=== PATIENT | male | born 1960 | race Caucasian/White ===

== ENCOUNTER 2018-02-28 00:18 | Emergency (ER) | payer BC ==
[~2018-02-28] VITALS: Ht 180.3 cm; Wt 90.7 kg
[~2018-02-28 00:18] MED LIST: LISINOPRIL10 MG PO; VIIBRYD40 MG PO; ZANTAC150 MG PO
[2018-02-28] MEDS ORDERED: ONDANSETRON HCL INJ 2 MG/ML VIAL IV STA (00:24)
[2018-02-28] MEDS ORDERED: KETOROLAC TROMETHAMINE 30 MG/ML VIAL IV STA (00:24)
[2018-02-28] MEDS ORDERED: KETOROLAC TROMETHAMINE 30 MG/ML VIAL ONE (00:28)
[2018-02-28 00:30] LABS: BASOPHILS # (AUTO) 0.1 (0.0-0.1); BASOPHILS % 0.7 % (0.0-1.0); EOSINOPHILS # (AUTO) 0.1 (0.0-0.4); EOSINOPHILS % 1.7 % (0.0-6.0); HEMATOCRIT 44.8 % (38.2-49.6); HEMOGLOBIN 15.6 g/dL (14.0-18.0); LYMPHOCYTES # (AUTO) 2.8 (1.0-3.2); LYMPHOCYTES % 40.7 % (18.0-39.1); MEAN CORPUSCULAR HEMOGLOBIN 29.4 pg (28-32); MEAN CORPUSCULAR HGB CONC 34.8 g/dL (31-35); MEAN CORPUSCULAR VOLUME 84.4 fL (81-99); MONOCYTES # (AUTO) 0.4 (0.2-0.8); MONOCYTES % 6.4 % (4.4-11.3); NEUTROPHILS # (AUTO) 3.4 (2.1-6.9); NEUTROPHILS % 49.9 % (38.7-80.0); PLATELET COUNT 155 x10e3/uL (140-360); RED BLOOD COUNT 5.31 x10e6/uL (4.3-5.7); RED CELL DISTRIBUTION WIDTH 14.2 % (11.7-14.4)
[2018-02-28 00:48] LABS: ALANINE AMINOTRANSFERASE 16 IU/L (0-55); ALBUMIN 3.8 g/dL (3.5-5.0); ALBUMIN/GLOBULIN RATIO 1.2 (0.8-2.0); ALKALINE PHOSPHATASE 96 IU/L (40-150); ANION GAP 12.9 mmol/L (8-16); BLOOD UREA NITROGEN 20 mg/dL (7-26); BUN/CREATININE RATIO 18 (6-25); CALCIUM 8.9 mg/dL (8.4-10.2); CARBON DIOXIDE 25 mmol/L (22-29); CHLORIDE 108 mmol/L (98-107); EST GLOMERULAR FILTRATION RATE > 60 ML/MIN (60-); GLUCOSE 102 mg/dL (74-118); POTASSIUM 3.9 mmol/L (3.5-5.1); SODIUM 142 mmol/L (136-145)
--- NOTE | 2018-02-28 01:37 | Diagnostic Imaging Report ---
EXAM: CT ABDOMEN/PELVIS WO DATE: 02/28/2018 12:24 AM INDICATION: Right flank pain COMPARISON: None TECHNIQUE: The abdomen and pelvis were scanned using a multidetector helical scanner. Coronal and sagittal reformations were obtained. Routine protocol performed. IV Contrast: 0 ml Isovue 300/370 FINDINGS: Lack of IV contrast decreases sensitivity in evaluating abdominal and pelvic organs. LOWER THORAX: No consolidations. Right middle lobe calcified granuloma. LIVER/BILIARY: Two incidental left liver cysts. No ductal dilatation. GALLBLADDER: Unremarkable SPLEEN: Unremarkable PANCREAS: Unremarkable ADRENALS: No nodules KIDNEYS: Nonobstructing 7 mm left interpolar renal calculus. No right renal calculi. No hydronephrosis GI TRACT: No wall thickening or evidence of obstruction. Diverticulosis. Normal appendix. VESSELS: Mild atherosclerotic calcifications PERITONEUM/RETROPERITONEUM: No free air or fluid LYMPH NODES: No lymphadenopathy REPRODUCTIVE ORGANS/BLADDER: Unremarkable SOFT TISSUES: No acute findings BONES: Scattered degenerative changes IMPRESSION: 1. No obstructive uropathy or other explanation for right flank pain. 2. Nonobstructing left nephrolithiasis. Signed by: Dr Arelis Campos MD on 02/28/2018 1:34 AM
== END 2018-02-28 01:57 | disposition home or self-care (01) ==
LOC: ER 00:18
DX: R10.31 Right lower quadrant pain (principal); R11.0 Nausea; M54.5 Low back pain; N20.0 Calculus of kidney; S39.012A Strain of muscle, fascia and tendon of lower back, initial encounter; F32.9 Major depressive disorder, single episode, unspecified; F17.210 Nicotine dependence, cigarettes, uncomplicated
CPT/HCPCS: 36415; 74176; 80053; 85025; 96374; 96375; 99284; J1885; J2405

== ENCOUNTER 2018-12-21 08:27 | Observation (INO) | payer BC ==
[~2018-12-21] VITALS: Ht 180.3 cm; Wt 94.8 kg
[2018-12-21] VITALS (7 sets, daily range): BP systolic 142–199; BP diastolic 73–96
--- OUTSIDE RECORDS SUMMARY | 2018-12-21 08:30 | XMS REPORT ---
Author Author [facility] Address Unknown Phone Unavailable Care Team Providers Care Burn Nurse Name Role Phone Selvin PATRICK Unavailable Unavailable Problems This patient has no known problems. Allergies, Adverse Reactions, Alerts This patient has no known allergies or adverse reactions. Medications This patient has no known medications. Results Test Description Test Time Test Comments Text Results Atomic Results Result Comments CT ABDOMEN/PELVIS WO 2018-02-28 01:30:00 [place] [address] Patient Name: TIKI GAMBINO MR #: [id number] : 1960 Age/Sex: 57/M Req #: [id number] Adm Physician: Ordered by: KASH PATRICK MD Report #: [id number] Location: ER Room/Bed: Procedure: [id number] CT/CT ABDOMEN/PELVIS WO Exam Date: 02/28/18 Exam Time: 54 REPORT STATUS: Signed EXAM: CT ABDOMEN/PELVIS WO DATE: 02/28/2018 12:24 AM INDICATION: Right flank pain COMPARISON: None TECHNIQUE: The abdomen and pelvis were scanned using a multidetector helical scanner. Coronal and sagittal reformations were obtained. Routine protocol performed. IV Contrast: 0 ml Isovue 300/370 FINDINGS: Lack of IV contrast decreases sensitivity in evaluating abdominal and pelvic organs. LOWER THORAX: No consolidations. Right middle lobe calcified granuloma. LIVER/BILIARY: Two incidental left liver cysts. No ductal dilatation. GALLBLADDER: Unremarkable SPLEEN: Unremarkable PANCREAS: Unremarkable ADRENALS: No nodules KIDNEYS: Nonobstructing 7 mm left interpolar renal calculus. No right renal calculi. No hydronephrosis GI TRACT: No wall thickening or evidence of obstruction. Diverticulosis. Normal appendix. VESSELS: Mild atherosclerotic calcifications PERITONEUM/RETROPERITONEUM: No free air or fluid LYMPH NODES: No lymphadenopathy REPRODUCTIVE ORGANS/BLADDER: Unremarkable SOFT TISSUES: No acute findings BONES: Scattered degenerative changes IMPRESSION: 1. No obstructive uropathy or other explanation for right flank pain. 2. Nonobstructing left nephrolithiasis. Signed by: Dr Claudette Campos MD on 02/28/2018 1:34 AM Dictated By: CLAUDETTE CAMPOS MD 3 Transcribed By: Merrick MONTOYA on 02/28/18133 COPY TO: KASH PATRICK MD
[2018-12-21] MEDS ORDERED: KETOROLAC TROMETHAMINE 60 MG/2 ML VIAL IM ONE (08:45)
[2018-12-21] MEDS ORDERED: SODIUM CHLORIDE 0.9% 250ML 250 ML ONE (08:46)
[2018-12-21] MEDS: MORPHINE SULFATE 1 MG/ML 30ML PCA IV PRN ×2 (09:09→19:55)
[2018-12-21] MEDS: CEFTRIAXONE SOD 1 GM/NS 50 ML 50 ML IV SCH (09:11)
[2018-12-21] MEDS: D5.45%NS/KCL 20MEQ 1,000 ML IV SCH ×2 (09:11→17:43)
[2018-12-21] MEDS ORDERED: NEXIUM40 MG PO (09:35)
--- NOTE | 2018-12-21 09:49 | NUR ---
patient received ambulatory. see admit assess. pain level 9 on arrival. after IM toradol and starting ELECTRIC MOTOR ASSEMBLER AND TESTER morphine, pain down to level 3. IV 20g started left forearm and ordered fluids infusing.
[2018-12-21 14:15] LABS: BASOPHILS % 0.5 % (0.0-1.0); EOSINOPHILS # (AUTO) 0.1 (0.0-0.4); EOSINOPHILS % 1.6 % (0.0-6.0); HEMATOCRIT 39.5 % (38.2-49.6); HEMOGLOBIN 13.8 g/dL (14.0-18.0); LYMPHOCYTES % 32.1 % (18.0-39.1); MEAN CORPUSCULAR HEMOGLOBIN 30.2 pg (28-32); MEAN CORPUSCULAR HGB CONC 34.9 g/dL (31-35); MEAN CORPUSCULAR VOLUME 86.4 fL (81-99); MONOCYTES # (AUTO) 0.4 (0.2-0.8); MONOCYTES % 6.3 % (4.4-11.3); NEUTROPHILS # (AUTO) 3.6 (2.1-6.9); NEUTROPHILS % 59.2 % (38.7-80.0); PLATELET COUNT 142 x10e3/uL (140-360); RED BLOOD COUNT 4.57 x10e6/uL (4.3-5.7)
[2018-12-21 14:28] LABS: INR 0.94; PROTHROMBIN TIME 13.1 seconds (11.9-14.5)
[2018-12-21 14:29] LABS: PARTIAL THROMBOPLASTIN TIME 29.4 seconds (23.8-35.5)
[2018-12-21 14:34] LABS: ALANINE AMINOTRANSFERASE 16 IU/L (0-55); ALBUMIN 3.2 g/dL (3.5-5.0); ALBUMIN/GLOBULIN RATIO 1.1 (0.8-2.0); ALKALINE PHOSPHATASE 84 IU/L (40-150); ANION GAP 9.6 mmol/L (8-16); BLOOD UREA NITROGEN 16 mg/dL (7-26); BUN/CREATININE RATIO 16 (6-25); CALCIUM 8.3 mg/dL (8.4-10.2); CARBON DIOXIDE 27 mmol/L (22-29); CHLORIDE 110 mmol/L (98-107); CREATININE, SERUM 0.97 mg/dL (0.72-1.25); EST GLOMERULAR FILTRATION RATE > 60 ML/MIN (60-); GLUCOSE 104 mg/dL (74-118); POTASSIUM 3.6 mmol/L (3.5-5.1); SODIUM 143 mmol/L (136-145)
--- NOTE | 2018-12-21 15:28 | NUR ---
patient transferred to med surg. report given to spencer YEAGER. vitals stable with no distress.
--- NOTE | 2018-12-21 15:30 | NUR ---
Received patient from IMCU patient A/O X3, even respirations on RA. PAINTER ROUGH pump morphine in place. Patient ambulatory. Bowel sounds active, skin intact, no edema. Call light in reach, bed low, wheels locked, side rails x2. Will continue to monitor.
--- NOTE | 2018-12-21 18:08 | Diagnostic Imaging Report ---
EXAM: ABDOMEN-1VIEW (KUB), DATE: 12/21/2018 8:51 AM INDICATION: Left flank pain. Gross hematuria. COMPARISON: None. Correlation with CT abdomen pelvis renal stone protocol dated 02/28/2018. FINDINGS: LINES/TUBES: None BOWEL PATTERN: No evidence for obstruction. SOFT TISSUES: 7.8 mm calcific density projected on the left flank at the level of L3 may represent an ureteral calculus, as there was a left renal calculus on the prior CT examination of February 2018. No mass effect. LUNG BASES: Clear. BONES: No acute findings. IMPRESSION: Findings concerning for a 7.8 mm calculus within the proximal left ureter. Consider CT abdomen renal stone protocol for further evaluation. Signed by: Dr. Vidya Cheney M.D. on 12/21/2018 6:05 PM
[2018-12-21] MEDS ORDERED: ONDANSETRON HCL INJ 2MG/ML 2ML 2 MG/ML VIAL IV PRN (18:45)
[2018-12-21] MEDS ORDERED: PROMETHAZINE 12.5MG/ NACL 0.9% 50 ML IV PRN (19:00)
[2018-12-21] MEDS ORDERED: PROMETHAZINE 12.5MG/ NACL 0.9% 12.5 MG/50 ML BAG IV PRN (19:00)
--- NOTE | 2018-12-21 19:00 | NUR ---
CHANGE OF SHIFT WALKING ROUNDS MADE, PATIENT IS NOT IN HIS ROOM OR THE RESTROOM. THE IV PUMP IS ON WITH BASAL RATE ON MORPHINE MATERIAL REQUISITIONER STILL INFUSING. THE IV PUMP IS NOW PUT ON PULSE.
--- NOTE | 2018-12-21 19:55 | NUR ---
PATIENT IS BACK IN HIS ROOM AND HE C/O SEVERE ABDOMINAL PAIN AND NAUSEA. ALL OF THE IV TUBINGS WERE CHANGED, MORPHINE KENNEL HELPER STARTED AND PHENERGAN ADMINISTERED ORDERED. THE PATIENT WAS EDUCATED THAT ONCE THE KENNEL HELPER IS INFUSING THE TREATMENT CANNOT BE INTERRUPTED FOR HIM TO GO OUTSIDE. CHARGE NURSE ALSO EDUCATED THE PATIENT ABOUT THE IMPORTANCE OF NOT INTERRUPTING THE MORPHINE KENNEL HELPER TREATMENT. BED ALARM ON, CALL LIGHT AND URINAL WITHIN EASY REACH.
--- NOTE | 2018-12-21 21:27 | NUR ---
PATIENT IS SOUNDLY ASLEEP, HE'S EASY TO AROUSE, NO RESPIRATORY DISTRESS OBSERVED. BED ALARM ON, CALL LIGHT AND URINAL WITHIN EASY REACH.
[2018-12-22 00:07] VITALS: BP 145/82
--- NOTE | 2018-12-22 01:35 | NUR ---
PATIENT IS ASLEEP, NO RESPIRATORY DISTRESS OBSERVED. BED ALARM AND URINAL WITHIN EASY REACH.
--- NOTE | 2018-12-22 01:44 | History and Physical ---
HISTORY OF PRESENT ILLNESS: The patient is a 58-year-old gentleman with history of urinary stones, was usual state of health until about the mid morning, the patient started to have abdominal pain, hematuria, did notice some hematuria in the morning, but the pain was less pronounced. The patient started with pain 10/10 in intensity and the patient is admitted to the hospital for a urethral stone. PAST MEDICAL HISTORY: History of depression, history of reflux esophagitis, and history of hyperlipidemia. MEDICATIONS: He takes at home are esomeprazole 40 mg daily and Viibryd 40 mg daily. ALLERGIES: THE PATIENT HAS NO KNOWN DRUG ALLERGIES. SOCIAL HISTORY: No EtOH. No IV drug abuse. REVIEW OF SYSTEMS: Negative for chest pain. Positive for nausea. Positive for abdominal pain. No constipation. No rectal bleeding. No hematochezia. No hematemesis. Positive for hematuria. PHYSICAL EXAMINATION: VITAL SIGNS: Temperature is 96.8, pulse is 65, blood pressure is 159/86, and pulse oximetry 97%. HEENT: Normocephalic, atraumatic. No icterus present. CVS: S1 and S2 normal. Regular rate and rhythm. ABDOMEN: Tender in the right upper quadrant and also left upper quadrant. The patient is also having tenderness in the CVA junction. EXTREMITIES: No clubbing, no cyanosis, no edema. LABORATORY VALUES: White count of 6.16, hemoglobin of 13.8, hematocrit of 39.5. Chemistry, sodium of 143, potassium 3.6, BUN and creatinine 16 and 0.97. Rest of the indices were normal. Coags were normal. IMAGING STUDIES: The patient's abdominal KUB shows a 7.8 cm calculus in the left proximal ureter. ASSESSMENT: 1. Urinary colic. 2. Ureteral stone. PLAN: Dr. Ramirez to do a left ureteral stent and extracorporeal shock wave lithotripsy. Continue to monitor the patient. IV fluids on hand. The patient is on a CLIENT ADMINISTRATOR pump. Phenergan and Zofran will be given for nausea control. Restart home medications. Further recommendation per clinical course. MD VALENCIA Guerrero/KRISTIL /[id number]
[2018-12-22 04:00] VITALS: BP 145/69
[2018-12-22] MEDS: D5.45%NS/KCL 20MEQ 1,000 ML IV SCH ×2 (04:15→09:35)
--- NOTE | 2018-12-22 04:28 | NUR ---
PATIENT RESTING IN BED, HE DENIES PAIN AT THIS TIME. MORPHINE LOSS PREVENTION RESEARCH ENGINEER INFUSING ORDERED, CALL LIGHT WITHIN EASY REACH. HE'S EDUCATED THAT BY 0600 HE WILL NEED TO TAKE A HIBICLENS BATH IN PREPARATION FOR HIS SURGICAL PROCEDURE THIS MORNING.
--- NOTE | 2018-12-22 05:15 | Consultation ---
DATE OF CONSULTATION: 12/21/2018 Urology Consultation REASON FOR CONSULTATION: Renal colic. HISTORY OF PRESENT ILLNESS: Alex Benoit is a 58-year-old man with a history of recurrent urolithiasis. The patient has previously passed kidney stones with significant amount of renal colic. The patient has had severe left-sided flank pain since the manager pediatric hours of today. He also noted gross hematuria. The patient denies urinary tract infections. Denies any urinary incontinence. He denies any urinary tract obstructive symptoms. Denies any urinary tract irritative symptoms. He also denies any dysuria. PAST MEDICAL AND SURGICAL HISTORY: 1. Recurrent kidney stones. 2. Depression. FAMILY HISTORY: Noncontributory to the active urological problems. SOCIAL HISTORY: The patient has a longstanding smoking history. denies ethanol and drug abuse. 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 ALLERGIES: NONE KNOWN. CURRENT MEDICATIONS: Please refer to the MAR. REVIEW OF SYSTEMS: Consistent with above history of present illness and past medical history, otherwise negative for all systems. PHYSICAL EXAMINATION: GENERAL: A healthy-appearing 58-year-old man, in no apparent distress, but obvious significant discomfort. VITAL SIGNS: He is afebrile. stable. ABDOMEN: Soft, nondistended. It is tender in the left flank with left costovertebral angle tenderness. Kidneys not palpable without hepatosplenomegaly. IMAGING AND LABORATORY STUDIES: CT scanning in the emergency room in February of 2018 revealed a 7 mm left interpolar stone without any hydronephrosis. KUB performed today revealed a 7.8 mm calcification near the left L3 consistent with the previously documented kidney stone. The patient's white blood cell count is 6160, hemoglobin is 13.8, and platelets are normal at 142,000. The patient's creatinine is normal at 0.97. His calcium is low at 8.3. PT and PTT are normal. ASSESSMENT: 1. Left renal colic. 2. Gross hematuria. 3. Left ureterolithiasis. 4. Anemia. 5. Hypocalcemia. 6. Presumed left hydronephrosis. 7. Smoking history. PLAN: 1. I posted the patient for left ESWL with cystoscopy and stent placement. Unfortunately, the patient was not n.p.o. and we could not perform the procedure today. 2. Ongoing urological followup is a must including metabolic stone workup in hopes of preventing additional recurrent stones. 3. One the above procedures have been performed, the patient will most likely be able to be discharged with plans for followup outpatient ureteroscopy and stent removal. Thank you very much for involving us in the care of your patient. We will be happy to follow him along with you as well as an outpatient. Vikram MD James [place]/MODL /[id number] cc: Demarco Jain MD
--- NOTE | 2018-12-22 06:48 | NUR ---
PATIENT IS OFF THE UNIT PER STRETCHER TO SURGERY, HE LEFT THE UNIT IN STABLE CONDITION WITHOUT PAIN OR RESPIRATORY DISTRESS.
[2018-12-22] MEDS ORDERED: SCOPOLAMINE 1.5 MG PATCH ONE (06:51)
[2018-12-22] MEDS ORDERED: FAMOTIDINE 20 MG/2 ML VIAL IV ONE (06:51)
[2018-12-22] MEDS ORDERED: IOPAMIDOL 200 MG/ML 20 ML VIAL IT ONE (06:53)
[2018-12-22] MEDS ORDERED: BELLADONNA/OPIUM 60 MG SUPP PR ONE (06:54)
--- NOTE | 2018-12-22 07:21 | NUR ---
RECEIVED REPORT FROM NIGHT NURSE IN SHIFT CHANGE. PATIENT IN OR FOR SURGERY AT THIS TIME.
[2018-12-22] MEDS ORDERED: ACETAMINOPHEN/CODEINE 300MG - 30MG TAB PO PRN (08:15)
[2018-12-22] MEDS ORDERED: TAMSULOSIN HCL 0.4 MG CAP PO SCH (08:15)
--- NOTE | 2018-12-22 08:17 | Progress Note ---
DATE: SUBJECTIVE: The patient has been admitted for renal colic, currently still in pain. No chest pains. No shortness of breath. Positive for some nausea. No vomiting. No diarrhea. No constipation. No rectal bleeding. MEDICATIONS: He is on IV fluids, morphine sulfate as needed, Rocephin 1 g q.12 hours, and also on Zofran as needed. OBJECTIVE: VITAL SIGNS: Temperature 97.7, pulse of 67, respirations of 20, blood pressure is 145/69. HEENT: Normocephalic and atraumatic. No icterus present. CVS: S1 and S2 normal. Regular rate and rhythm. ABDOMEN: Tender in the left CVA, otherwise with no suprapubic tenderness. EXTREMITIES: No clubbing, no cyanosis, no edema. LABORATORY VALUES: None done today. ASSESSMENT: Renal colic/renal stone. PLAN: Plan is to do a retrograde stent and lithotripsy. Continue current management. Further recommendation on clinical course and also on Dr. Ramirez. MD VALENCIA Guerrero/MODL /[id number]
--- NOTE | 2018-12-22 08:40 | NUR ---
PATIENT BACK FROM SURGERY AT THIS TIME. NO SIGNS OF DISTRESS. VITALS STABLE. WILL CONTINUE TO MONITOR PATIENT.
[2018-12-22 08:58] VITALS: BP 164/83
[2018-12-22] MEDS ORDERED: OXYBUTYNIN CHLORIDE 5 MG TAB PO SCH (09:00)
[2018-12-22] MEDS ORDERED: PHENAZOPYRIDINE HCL 100 MG TAB PO SCH (09:00)
[2018-12-22] MEDS: CEFTRIAXONE SOD 1 GM/NS 50 ML 50 ML IV SCH (09:35)
[2018-12-22 09:56] VITALS: BP 164/83
[2018-12-22] MEDS ORDERED: TYLENOL WITH C1 EACH PO (10:34)
[2018-12-22] MEDS ORDERED: FLOMAX0.4 MG PO (10:34)
[2018-12-22] MEDS ORDERED: DITROPAN XL5 MG PO (10:34)
[2018-12-22 11:43] VITALS: BP 156/85
--- NOTE | 2018-12-22 12:30 | NUR ---
REMOVED PATIENTS IV. CATHETER TIP INTACT AND PRESSURE DRESSING APPLIED.
--- NOTE | 2018-12-22 12:43 | NUR ---
PATIENT DISCHARGED FROM FACILITY. PATIENT GATHERED ALL PERSONAL BELONGINGS, DISCHARGE INSTRUCTIONS, PRESCRIPTIONS, AND FOLLOW UP INFORMATION. NO SIGNS OF DISTRESS LEAVING FACILITY.
--- NOTE | 2018-12-22 14:54 | Operative Report ---
DATE OF PROCEDURE: 12/22/2018 SURGEON: Vikram Ramirez MD PREOPERATIVE DIAGNOSES: 1. Left ureterolithiasis. 2. Left hydronephrosis due to stone. 3. Gross hematuria. POSTOPERATIVE DIAGNOSES: 1. Left ureterolithiasis. 2. Left hydronephrosis due to stone. 3. Gross hematuria. OPERATION PERFORMED: 1. Left-sided extracorporeal shock wave lithotripsy (separate staged procedures as part of a multi-stage and multi-step process in managing the patient's left urolithiasis). 2. Cystourethroscopy with bilateral ureteral catheterization and retrograde ureteropyelography (separate procedure performed for the hematuria). 3. Interpretation of retrograde ureteropyelography. 4. Supervision of fluoroscopy, no radiologist present. 5. Cystourethroscopy with insertion of left indwelling ureteral stent (separate procedure performed to relieve the hydronephrosis). ANESTHESIA: General. COMPLICATIONS: None. CLINICAL SUMMARY: Please refer to consultation dictation from the prior date. OPERATIVE PROCEDURE IN DETAIL: Informed consent was verified. Alex Benoit was properly identified, placed in a lithotripsy table in supine position. Anesthesia was uneventfully begun. The patient's left ureterolithiasis was localized with biplanar fluoroscopy. A total of 3000 shocks were delivered with some degree of fragmentation noted. The patient was then carefully gently repositioned in dorsal lithotomy position with all pressure points well padded and his genitalia were prepared and draped in usual sterile fashion. A 21-Guatemalan cystourethroscope sheath with the visual obturator in place was atraumatically inserted and the patient's urethra was guided down the relatively unremarkable urethra through the normal sphincteric region through the prostate bed, which was significant for trilobar prostatic hypertrophy with an intravesical median lobe. We entered the patient's bladder and drained it. Panendoscopy of the bladder revealed some fine sand and also revealed mild trabeculations. Normally positioned configured ureteral orifices were identified. No bladder tumors and no suspicious lesions were identified. A 5-Guatemalan open-ended ureteral catheter was used to cannulate the left ureter and retrograde ureteropyelography was performed. We then negotiated guidewire past the region of the stone and into the patient's hydronephrotic kidney and obtained a brisk hydronephrotic drip, which was slightly pink, it was sent for culture and sensitivity. Guidewire was replaced and with cystoscopic and fluoroscopic guidance, the left-sided indwelling ureteral stent was then placed, it was coiled in the patient's upper pole calyx as well as in the patient's bladder and the retaining suture was cut short. A 5-Guatemalan open-ended catheter was used to cannulate the right ureter and retrograde ureteropyelography was performed. Interpretation of retrograde ureteropyelography: Contrast was instilled in a retrograde fashion bilaterally. The right side exhibited no hydronephrosis. 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 Calices were sharp and delicate. There were no filling defects and no suspicious lesions. The ureter was unremarkable. Unobstructed drainage was observed fluoroscopically. The left side exhibited normal distal ureter. At the junction between the proximal and mid third of the left ureter, there were multiple filling defects corresponding to the stone with fairly significant hydroureteronephrosis proximal to that with pyelosinus backflow and calyceal blunting consistent with relatively acute and relatively high-grade obstruction. The stent was in good position, coiled in the patient's upper pole calyx as well as in the patient's bladder at the end of the case. The patient's bladder was drained. The cystoscope was withdrawn. Belladonna and opium suppository was placed revealing a 30 g prostate, smooth and non-fluctuant without any nodules. The patient was uneventfully reversed from anesthesia and taken to recovery room in stable condition. There were no complications to the procedure. He tolerated the procedure well. Explicit postop instructions were given listed on the chart. PLAN: 1. I have prescribed the patient Tylenol No. 3, Ditropan, and Flomax. 2. The patient needs to filter and strain the urine for the next couple of weeks and save all sand. 3. In several weeks, we will need to return the patient to the operating room to remove his stent, perform ureteroscopy with holmium laser standby and hopefully render him stent-free and stone-free at that time. 4. The patient needs ongoing urological followup as well as metabolic stone workup in hopes of decreasing his rate of stone recurrence. 5. We will follow the patient up on long-term basis for his BPH. Vikram Ramirez MD [place]/MODL /[id number] cc: Demarco Jain MD
[2018-12-22] MEDS ORDERED: PROPOFOL IV EMULSION 10 MG/ML 20 ML VIAL ONE (18:07)
[2018-12-22] MEDS ORDERED: SEVOFLURANE INHAL SOLN 250 ML PEN BTL ONE (18:07)
[2018-12-22] MEDS ORDERED: LIDOCAINE HCL 2% LOCAL INJ 5 ML SDV VIAL INJ ONE (18:07)
[2018-12-22] MEDS ORDERED: ONDANSETRON HCL INJ 2MG/ML 2ML 2 MG/ML VIAL ONE (18:07)
[2018-12-22] MEDS ORDERED: DEXAMETHASONE SOD PHOS INJ 4 MG/ML VIAL ONE (18:07)
[2018-12-22] MEDS ORDERED: FENTANYL CITRATE/PF 100MCG/2 ML INJ ONE (18:28)
[2018-12-22] MEDS ORDERED: MIDAZOLAM HCL 2 MG/2 ML VIAL ONE (18:28)
== END 2018-12-22 12:43 | disposition home or self-care (01) ==
LOC: UNDOADMOB 08:27 → PACU V 08:27 → IMCU 08:29 → MED/SURG 15:27
PROVIDERS: ADMIT Family Medicine; ATTEND Family Medicine
DX: N13.2 Hydronephrosis with renal and ureteral calculous obstruction (principal); N23 Unspecified renal colic; K21.9 Gastro-esophageal reflux disease without esophagitis; D64.9 Anemia, unspecified; F17.210 Nicotine dependence, cigarettes, uncomplicated; I10 Essential (primary) hypertension; E83.51 Hypocalcemia
CPT/HCPCS: 36415; 50590; 52332; 74018; 80053; 85025; 85610; 85730; 87086; 96365; 96367; C2617; G0378 ×2; J0696 ×2; J1100; J1885; J2001; J2250; J2270; J2405; J2550; J2704; J7050; Q9967

== ENCOUNTER → 2019-01-05 | Outpatient (CLI) | payer BC ==
[~2019-01-05] MED LIST changes: +DITROPAN XL5 MG PO; +FLOMAX0.4 MG PO; +NEXIUM40 MG PO; +TYLENOL WITH C1 EACH PO
--- NOTE | 2019-01-05 13:10 | Diagnostic Imaging Report ---
Abdomen, 1 view. History: Renal calculus. Comparison: 12/19/2018. Findings: A new left internal ureteral stent is present extending from the left kidney to the bladder. 8 mm stone is again seen in the proximal left ureter, at the level of L3. Air is scattered throughout nondilated small and large bowel. There are no masses. The osseous structures are intact. IMPRESSION: Status post left internal ureteral stent placement. Signed by: Rod Quintero on 01/05/2019 1:06 PM
== END ==
LOC: RAD 10:54
PROVIDERS: ATTEND Urology
DX: N20.1 Calculus of ureter (principal)
CPT/HCPCS: 74018

== ENCOUNTER → 2019-01-11 | Day surgery (SDC) | payer BC ==
[~2019-01-11] MED LIST changes: +ACETAMINOPHEN 1000 MG/100 ML IV ONE; +B&O 60MG R/S 60 MG SUPP PR ONE; +DEXAMETHASONE SOD PHOS INJ 4 MG/ML VIAL ONE; +FENTANYL CITRATE/PF 100MCG/2 ML INJ ONE; +GENTAMICIN 80MG/NS 100 ML 200 ML IV ONE; +IOPAMIDOL 610MG/1ML 300 MG/ML VIAL IV ONE; +KETOROLAC TROMETHAMINE 30 MG/ML VIAL ONE; +LIDOCAINE HCL 2% LOCAL INJ 5 ML SDV VIAL INJ ONE; +ONDANSETRON HCL INJ 2MG/ML 2ML 2 MG/ML VIAL ONE; +PIPER-TAZ 3.375 GM 50 ML ONE; +PROPOFOL IV EMULSION 10 MG/ML 20 ML VIAL ONE; +SEVOFLURANE INHAL SOLN 250 ML PEN BTL ONE
[2019-01-11 10:34] VITALS: BP 166/99
--- NOTE | 2019-02-22 05:30 | Operative Report ---
DATE OF PROCEDURE: 01/11/2019 SURGEON: Vikram Ramirez MD PREOPERATIVE DIAGNOSES: 1. Left ureterolithiasis. 2. Left nephrolithiasis. 3. Left indwelling ureteral stent. POSTOPERATIVE DIAGNOSES: 1. Left ureterolithiasis. 2. Left nephrolithiasis. 3. Left indwelling ureteral stent. OPERATIONS PERFORMED: Note: These were all staged procedures as part of a multi-stage and multi-step process in managing the patient's urolithiasis. 1. Cystourethroscopy with complicated removal of left indwelling ureteral stent (separate procedure performed for the diagnosis of stent under separate scope). 2. Left semi-rigid ureteroscopy with stone manipulation of ureteral stones (separate procedure performed for further diagnosis of ureteral stones). 3. Repeated and extensive left flexible ureteropyeloscopy with stone manipulation and extraction (several procedures performed to remove multiple stones from the patient's left kidney done with the flexible ureteroscope). 4. Radiological services for supervision and interpretation of ureteroscopy. 5. Interpretation of retrograde ureteropyelography. 6. Supervision of fluoroscopy, no radiologist is present. ANESTHESIA: General. COMPLICATIONS: None. CLINICAL SUMMARY: Alex Benoit is a 58-year-old man, who has recurrent stone disease. The patient had an 8 mm stone that was lodged and obstructing at the level of the mid ureter. He underwent emergent ESWL and stent placement. He is brought to the operating room for management of his residual stones in the hopes of rendering him stent free and stone free. He is aware of the risks of bleeding, infection, injury to adjacent structures, need for additional procedures and elected to proceed. OPERATIVE PROCEDURE IN DETAIL: Informed consent was verified. Alex Benoit was properly identified, taken to the operating room, placed on the cystoscopy table in supine position. Anesthesia was uneventfully begun. The patient was then carefully and gently repositioned in the dorsal lithotomy position with all pressure points well padded. His genitalia were prepared and draped in usual sterile fashion. The cystoscope sheath with the visual obturator in place was atraumatically inserted into the patient's urethra. It was guided down unremarkably urethra through the prostate bed, which was significant for trilobar prostatic hypertrophy with visually obstructing BPH. A significant median lobe and kissing lateral lobes. Panendoscopy of the urinary bladder revealed trabeculations and stent emerging from the left ureteral orifice. A guidewire was then placed alongside the stent and guided to the level of the patient's kidney. The stent was then grasped completely removed and discarded. Semi-rigid ureteroscopy was then performed. The ureteroscope was brought up alongside the guidewire and atraumatically inserted into the patient's left ureter. We identified some sand material and some small stones. These stones were irrigated to dislodge them from the mucosa. They were too small to grasp. Secondary guidewire was left in place. The flexible ureteroscope was then brought up over the guidewire and guided to the level of the patient's kidney. Numerous stones were identified. These stones were small enough to be extracted atraumatically. Each stone was grasped with a Nitinol tipless basket. The ureteroscope was then completely removed with the stone. We then reintroduced the ureteroscope, brought it back up over secondary guidewire grasping the stone and pulled that out. This procedure was performed numerous times until all significantly sized stones were removed from the patient's kidney, only verifying sand remained that was too small to grasp with the basket. Irrigation within the intrarenal collecting system was performed in order to dislodge all the sand and allow it to pass. We carefully examined the ureter as we exited and exhibited no stones, no debris. The previous sand that we noted within the ureter, we were able to flush out. Interpretation of retrograde ureteropyelography: Contrast was instilled in a retrograde fashion via the ureteroscope. There was fullness of the left-sided collecting system. There was no extravasation of contrast. Unobstructed drainage was observed fluoroscopically at the end of the case. The patient's bladder was drained and cystoscope was withdrawn. Belladonna and opium suppository were placed revealing a 35 g prostate that is smooth, nonfluctuant without any nodules. The patient was then uneventfully reversed from anesthesia and taken to recovery room in stable condition. There were no complications at the end of the procedure. He tolerated procedure well. Explicit postoperative instructions were given. We will follow the patient up in the office. At which point in time, uroflowmetry and bladder ultrasonography will be performed. Vikram Ramirez MD [place]/MODL /[id number] cc: Demarco Jain MD
== END | disposition home or self-care (01) ==
LOC: OR 06:16
PROVIDERS: ATTEND Urology
DX: N20.0 Calculus of kidney (principal); N40.1 Benign prostatic hyperplasia with lower urinary tract symptoms; Z46.6 Encounter for fitting and adjustment of urinary device; N13.8 Other obstructive and reflux uropathy; N32.89 Other specified disorders of bladder; K21.9 Gastro-esophageal reflux disease without esophagitis; F32.9 Major depressive disorder, single episode, unspecified; F17.210 Nicotine dependence, cigarettes, uncomplicated
CPT/HCPCS: 36415; 52352; 74420; 84550; 88300; 93005; J0131; J1100; J1580; J1885; J2001; J2405; J2543; J2704; Q9967; J3010

== ENCOUNTER 2019-01-12 02:52 | Observation (INO) | payer BC ==
[~2019-01-12] VITALS: Ht 180.3 cm; Wt 91.6 kg
[2019-01-12] VITALS (7 sets, daily range): BP systolic 127–150; BP diastolic 69–92
[~2019-01-12 02:52] MED LIST changes: -ACETAMINOPHEN 1000 MG/100 ML IV ONE; -B&O 60MG R/S 60 MG SUPP PR ONE; -DEXAMETHASONE SOD PHOS INJ 4 MG/ML VIAL ONE; -GENTAMICIN 80MG/NS 100 ML 200 ML IV ONE; -IOPAMIDOL 610MG/1ML 300 MG/ML VIAL IV ONE; -KETOROLAC TROMETHAMINE 30 MG/ML VIAL ONE; -LIDOCAINE HCL 2% LOCAL INJ 5 ML SDV VIAL INJ ONE; +MIDAZOLAM HCL 2 MG/2 ML VIAL ONE; -ONDANSETRON HCL INJ 2MG/ML 2ML 2 MG/ML VIAL ONE; -PIPER-TAZ 3.375 GM 50 ML ONE; -PROPOFOL IV EMULSION 10 MG/ML 20 ML VIAL ONE; -SEVOFLURANE INHAL SOLN 250 ML PEN BTL ONE
[2019-01-12] MEDS ORDERED: HYDROMORPHONE 1MG/1ML INJ IV STA (03:02)
[2019-01-12] MEDS ORDERED: ONDANSETRON HCL INJ 2MG/ML 2ML 2 MG/ML VIAL IV STA (03:02)
[2019-01-12] MEDS ORDERED: SODIUM CHLORIDE 0.9% 1000ML 1,000 ML IV STA (03:02)
[2019-01-12] MEDS ORDERED: ONDANSETRON HCL INJ 2MG/ML 2ML 2 MG/ML VIAL ONE (03:11)
[2019-01-12] MEDS ORDERED: LIDOCAINE JELLY 2% 10ML URO-JET ONE (03:12)
[2019-01-12] MEDS ORDERED: SODIUM CHLORIDE 0.9% 1000ML 1,000 ML ONE (03:12)
[2019-01-12] MEDS ORDERED: LIDOCAINE JELLY 2% 10ML URO-JET TOP ONE (03:15)
[2019-01-12] MEDS ORDERED: HYDROMORPHONE 2MG/ML 2 MG/ML ML ONE (03:20)
[2019-01-12 03:28] LABS: BASOPHILS % 0.1 % (0.0-1.0); EOSINOPHILS % 0.1 % (0.0-6.0); HEMOGLOBIN 14.7 g/dL (14.0-18.0); LYMPHOCYTES # (AUTO) 2.3 (1.0-3.2); LYMPHOCYTES % 12.2 % (18.0-39.1); MEAN CORPUSCULAR HEMOGLOBIN 29.4 pg (28-32); MONOCYTES # (AUTO) 1.1 (0.2-0.8); MONOCYTES % 5.7 % (4.4-11.3); NEUTROPHILS # (AUTO) 15.2 (2.1-6.9); NEUTROPHILS % 81.4 % (38.7-80.0); PLATELET COUNT 199 x10e3/uL (140-360); RED CELL DISTRIBUTION WIDTH 13.8 % (11.7-14.4)
[2019-01-12 03:37] LABS: INR 0.88; PROTHROMBIN TIME 12.4 seconds (11.9-14.5)
[2019-01-12 03:38] LABS: PARTIAL THROMBOPLASTIN TIME 26.4 seconds (23.8-35.5)
[2019-01-12 03:42] LABS: ANION GAP 17.9 mmol/L (8-16); CREATININE, SERUM 1.54 mg/dL (0.72-1.25); POTASSIUM 3.9 mmol/L (3.5-5.1)
[2019-01-12 04:03] LABS: CALCIUM 9.9 mg/dL (8.4-10.2)
[2019-01-12] MEDS ORDERED: ONDANSETRON HCL INJ 2MG/ML 2ML 2 MG/ML VIAL IV PRN (04:45)
[2019-01-12] MEDS ORDERED: HYDROMORPHONE 1MG/1ML INJ IV PRN (04:45)
--- NOTE | 2019-01-12 05:10 | NUR ---
Patient arrived to the unit alert and oriented x3. Has Cudae catheter draining bloody urine. Per report received from ER nurse, Dr. Ramirez has been notified of consult. Patient also said he works with Dr. Ramirez and has sent a text message. Dr. Ramirez replies will see pt today. IVF (NS at 125ml/hr) infusing. Call hinojosa within reach.
[2019-01-12 05:56] LABS: BILIRUBIN,URINE NEGATIVE (NEGATIVE); CLARITY,URINE CLEAR (CLEAR); COLOR,URINE RED (YELLOW); KETONES,URINE NEGATIVE (NEGATIVE); LEUKOCYTE ESTERASE ,URINE SMALL (NEGATIVE); NITRITE,URINE POSITIVE (NEGATIVE); URINE UROBILINOGEN 1 mg/dL (0.2 - 1)
[2019-01-12] MEDS: CEFTRIAXONE SOD 1 GM/NS 50 ML 50 ML IV SCH (06:00)
[2019-01-12] MEDS: SODIUM CHLORIDE 0.9% 1000ML 1,000 ML IV SCH ×2 (06:00→17:15)
[2019-01-12 06:09] LABS: PROTEIN,URINE DIPSTICK 3+ (NEGATIVE)
[2019-01-12 06:12] LABS: BACTERIA,URINE FEW /HPF; EPITHELIAL CELLS,URINE RARE /LPF; RBC,URINE >50 /HPF (0-5); TRANSITIONAL EPI CELLS,URINE RARE; WBC,URINE (MAN) 0-5 /HPF (0-5)
--- NOTE | 2019-01-12 07:38 | History and Physical ---
REASON FOR ADMISSION: The patient is a 58-year-old gentleman with a history of recurrent urinary stones, comes in with urinary retention and hematuria. HISTORY OF PRESENTING ILLNESS: Mr. Benoit, who had a long-standing history of kidney stones, came in with problems with urinating. The patient had removed his stent yesterday. The patient started to have hematuria, urgency, and discomfort. The patient could not urinate for a long period of time, tried to sit on the commode and the patient did notice multiple amount of clots being passed. The patient's pain was increasing and the patient came to the emergency room, was found to have obstructive uropathy, also with hematuria, and elevated pain and hematuria. PAST MEDICAL HISTORY: History of kidney stone and history of depression. MEDICATIONS: The patient takes antidepressant Viibryd 40 mg daily. ALLERGIES: NO DRUG ALLERGIES. MEDICATIONS: Besides that none. The patient also takes Nexium and esomeprazole for reflux esophagitis. SOCIAL HISTORY: No EtOH. No IV drug abuse. REVIEW OF SYSTEMS: Negative for chest pain. Positive for some shortness of breath. Positive for chills. Positive for fever. No nausea, vomiting, or diarrhea. No constipation. No rectal bleeding. Positive for hematuria. Positive for dysuria and anuria. PHYSICAL EXAMINATION: VITAL SIGNS: Temperature is 97.5, pulse of 85, respirations of 19, blood pressure is 139/73, and pulse oximetry 95%. HEENT: Normocephalic, atraumatic. Pupils are reactive to light and accommodation. CVS: S1, S2 normal. Regular rate and rhythm. ABDOMEN: Distended, tender. No CVA tenderness present. EXTREMITIES: No clubbing, no cyanosis, no edema. LABORATORY DATA: The patient's white count is ,000, hemoglobin of 14.7, hematocrit 42.7, and left shift was present. Chemistry shows sodium 134, potassium 3.9, BUN was 20, creatinine of 1.54 with a glucose of 128. Coags were normal. IMAGING STUDIES: None done. ASSESSMENT: 1. Obstructive uropathy. 2. Acute renal failure. 3. Gross hematuria. 4. Urinary retention. 5. History of depression. 6. History of reflux esophagitis. PLAN: To continue with manual irrigation. The patient has been irrigated. Nathan is inserted. A 750 mL of urine has been drained and was with thick curt blood. Continue to monitor the patient. Check a CBC and the CMP tomorrow. Monitor for his uropathy and renal failure. The patient is also on Rocephin. Microbiology, urine cultures are pending. We will also do urine culture, blood culture in view of his feeling chills and fevers. Further recommendation per clinical course. We will continue to monitor the patient. MD VALENCIA Guerrero/CHRISTAL /[id number]
--- NOTE | 2019-01-12 08:10 | NUR ---
Notified patient of 's orders for simple irrigation. Patient states " I have been doing it myself. I want to do it myself since I know how to do it.The last time I did it was at 0730." Offered help patient refused at this time. Instructed patient to call for help when needed. Voiced understanding.
[2019-01-12] MEDS ORDERED: ACETAMINOPHEN/CODEINE 300MG - 30MG TAB PO PRN (08:15)
[2019-01-12] MEDS ORDERED: OXYBUTYNIN CHLORIDE XL 5 MG TAB PO PRN (08:15)
[2019-01-12] MEDS: TAMSULOSIN HCL 0.4 MG CAP PO SCH (08:54)
[2019-01-12] MEDS: PANTOPRAZOLE SOD 40 MG TABEC PO SCH (08:54)
--- NOTE | 2019-01-12 11:30 | NUR ---
Simple irrigation done by patient. Moderate amount of blood clots noted.
--- NOTE | 2019-01-12 13:20 | NUR ---
Simple irrigation done by patient.
--- NOTE | 2019-01-12 16:30 | NUR ---
Simple irrigation done by patient. Moderate amount of blood clots noted.
--- NOTE | 2019-01-12 18:31 | NUR ---
Resting in bed, call light within reach. No s/s of acute distress noted. Report to be given to oncoming nurse.
--- NOTE | 2019-01-12 19:15 | NUR ---
Patient visited in room during nursing rounds. Patient alert and oriented x3. No distress noted. Pt states having some slight off-on discomfort on his bladder area especially when expelling or sucking out blood clots from coude catheter. Urine notably bloody to dark red in color. Call hinojosa within reach. Will monitor closely.
[2019-01-12] MEDS: HYDROMORPHONE 2MG/ML 2 MG/ML ML IV PRN (19:34)
--- NOTE | 2019-01-12 22:00 | NUR ---
Patient assisted on aspirating blood clots from coude catheter. Large amounts of blood clots pulled out fo catheter. Pt stated he felt immediate relief.
[2019-01-13 00:18] VITALS: BP 144/67
[2019-01-13] MEDS: SODIUM CHLORIDE 0.9% 1000ML 1,000 ML IV SCH ×2 (03:04→09:07)
[2019-01-13 04:00] VITALS: BP 162/83
--- NOTE | 2019-01-13 04:00 | NUR ---
Patient stated he has pulled out blood clots from coude catheter. Urine dark red in color.
[2019-01-13 05:27] LABS: BASOPHILS % 0.5 % (0.0-1.0); EOSINOPHILS # (AUTO) 0.2 (0.0-0.4); EOSINOPHILS % 2.3 % (0.0-6.0); HEMATOCRIT 37.8 % (38.2-49.6); HEMOGLOBIN 12.4 g/dL (14.0-18.0); LYMPHOCYTES # (AUTO) 2.6 (1.0-3.2); LYMPHOCYTES % 34.2 % (18.0-39.1); MEAN CORPUSCULAR HEMOGLOBIN 29.2 pg (28-32); MEAN CORPUSCULAR HGB CONC 32.8 g/dL (31-35); MONOCYTES # (AUTO) 0.6 (0.2-0.8); MONOCYTES % 7.4 % (4.4-11.3); NEUTROPHILS # (AUTO) 4.2 (2.1-6.9); NEUTROPHILS % 54.9 % (38.7-80.0); PLATELET COUNT 149 x10e3/uL (140-360); RED BLOOD COUNT 4.24 x10e6/uL (4.3-5.7); RED CELL DISTRIBUTION WIDTH 14.4 % (11.7-14.4)
[2019-01-13 05:28] LABS: MEAN CORPUSCULAR VOLUME 89.2 fL (81-99)
[2019-01-13 05:55] LABS: BLOOD UREA NITROGEN 16 mg/dL (7-26); BUN/CREATININE RATIO 18 (6-25); CALCIUM 8.4 mg/dL (8.4-10.2); CARBON DIOXIDE 24 mmol/L (22-29); CHLORIDE 106 mmol/L (98-107); CREATININE, SERUM 0.87 mg/dL (0.72-1.25); EST GLOMERULAR FILTRATION RATE > 60 ML/MIN (60-); GLUCOSE 93 mg/dL (74-118); SODIUM 137 mmol/L (136-145)
[2019-01-13] MEDS: CEFTRIAXONE SOD 1 GM/NS 50 ML 50 ML IV SCH (06:22)
--- NOTE | 2019-01-13 06:30 | NUR ---
Dr. Jain came and rounded. spoke with patient and aware of pt condition.
--- NOTE | 2019-01-13 07:13 | Progress Note ---
DATE: SUBJECTIVE: This is a 58-year-old gentleman comes in with hematuria, status post stent removal. The patient has a Nathan catheter right now. Did have some problems at nighttime with pain. Manual flushing was done. The patient's pain was relieved. Currently, asymptomatic except for diarrhea, which started last night. The patient continued to have diarrheal movements, total of six movements are noted, they were watery. OBJECTIVE: VITAL SIGNS: Today temperature is 96.9, pulse of 68, respirations of 18, blood pressure is 162/83, and pulse oximetry of 96%. HEENT: Normocephalic, atraumatic. Pupils are reactive to light and accommodation. CVS: S1, S2 normal. Regular rate and rhythm. ABDOMEN: Tenderness present in the suprapubic area. EXTREMITIES: No clubbing, no cyanosis, no edema. No CVA tenderness present. LABORATORY VALUES: Today's white count is 7.68, hemoglobin 12.4, hematocrit 37.8. Chemistries; sodium 137, potassium 4, BUN 16, creatinine 0.87. MICROBIOLOGY: Blood cultures are pending. Urine culture is pending. ASSESSMENT: Acute urinary retention, obstructive uropathy, acute renal failure, history of depression, history of reflux esophagitis, and hematuria. PLAN: Continue with antibiotics. The patient is currently on Rocephin. Plan is to continue with this. The patient's Nathan will be removed today if okay with Dr. Ramirez. The patient can also do a C difficile toxin and continue monitoring his labs. Possible discharge today. Further recommendation per clinical course. We will continue to monitor the patient. MD VALENCIA Guerrero/MODL /[id number]
[2019-01-13] MEDS: HYDROMORPHONE 2MG/ML 2 MG/ML ML IV PRN (07:23)
[2019-01-13 07:50] VITALS: BP 165/84
[2019-01-13 08:04] VITALS: BP 165/84
[2019-01-13] MEDS: PANTOPRAZOLE SOD 40 MG TABEC PO SCH (09:07)
[2019-01-13] MEDS: TAMSULOSIN HCL 0.4 MG CAP PO SCH (09:07)
--- NOTE | 2019-01-13 09:55 | NUR ---
PIV removed with tip intact. patient to d/c with coude cath in place, teaching on overnight drain bag and leg bag. patient able to show proper technique for manual irrigations, patient instructed to continue irrigation at home. leg bag and irrigation supplies provided for home care. patient to f/u with urology outpatient, office information provided to patient. RX, all personal belongings and d/c instructions in hand at time of d/c.
== END 2019-01-13 09:55 | disposition home or self-care (01) ==
LOC: ER 02:52 → ERHOLD 04:35 → MED/SURG2 05:10
PROVIDERS: ADMIT Family Medicine; ATTEND Family Medicine
DX: N13.9 Obstructive and reflux uropathy, unspecified (principal); R31.0 Gross hematuria; N17.9 Acute kidney failure, unspecified; R33.9 Retention of urine, unspecified; Z87.442 Personal history of urinary calculi; K21.0 Gastro-esophageal reflux disease with esophagitis; D64.9 Anemia, unspecified
CPT/HCPCS: 36415 ×2; 51700; 80048 ×2; 81001; 85025 ×2; 85610; 85730; 87040; 87086; 99284; G0378 ×2; J0696 ×2; J1170 ×2; J2250; J2405; J7030 ×2; S0164 ×2

== ENCOUNTER → 2019-06-28 | Outpatient (CLI) | payer BC ==
[~2019-06-28] MED LIST changes: -FENTANYL CITRATE/PF 100MCG/2 ML INJ ONE; -MIDAZOLAM HCL 2 MG/2 ML VIAL ONE
--- NOTE | 2019-06-28 14:25 | Diagnostic Imaging Report ---
EXAM: Right upper quadrant abdominal ultrasound INDICATION: Right upper quadrant pain COMPARISON: None. TECHNIQUE: Transverse and longitudinal images of the right upper quadrant abdomen were obtained FINDINGS: Liver: Size: 17.4 cm in the right midclavicular line, normal Appearance: Increased echogenicity, smooth contour Mass: No focal masses Gallbladder: Multiple shadowing gallstones within the gallbladder. No gallbladder distention, wall thickening, or pericholecystic fluid. Negative reported sonographic Schaefer's sign. Gallbladder wall measures 3 mm. Bile Ducts: Intrahepatic Ducts: No dilatation Extrahepatic Ducts: Common bile duct measures 3 mm, no dilatation Pancreas: Visualized portions of the pancreatic head, neck and proximal body are normal. Kidney: The right kidney measures 10.9 cm without evidence of hydronephrosis or stone. Vessels: Aorta: Visualized portions are normal Inferior Vena Cava: Visualized portions are normal Main Portal Vein: 1.3 cm, normal size with hepatopetal flow. Free Fluid: No ascites or pleural effusion IMPRESSION: Cholelithiasis without sonographic evidence of cholecystitis. Mild hepatomegaly and diffuse hepatic steatosis. Signed by: Michelle Almanzar MD on 06/28/2019 2:21 PM
== END ==
LOC: US 13:40
PROVIDERS: ATTEND Surgery
DX: R10.11 Right upper quadrant pain (principal); K80.20 Calculus of gallbladder without cholecystitis without obstruction; R16.0 Hepatomegaly, not elsewhere classified; K76.0 Fatty (change of) liver, not elsewhere classified
CPT/HCPCS: 76705

== ENCOUNTER → 2019-07-07 | Day surgery (SDC) | payer BC ==
[2019-07-04 14:19] LABS: BASOPHILS % 0.5 % (0.0-1.0); EOSINOPHILS # (AUTO) 0.1 (0.0-0.4); EOSINOPHILS % 1.5 % (0.0-6.0); HEMATOCRIT 44.2 % (38.2-49.6); HEMOGLOBIN 15.1 g/dL (14.0-18.0); LYMPHOCYTES # (AUTO) 2.1 (1.0-3.2); LYMPHOCYTES % 28.4 % (18.0-39.1); MEAN CORPUSCULAR HEMOGLOBIN 29.2 pg (28-32); MEAN CORPUSCULAR HGB CONC 34.2 g/dL (31-35); MEAN CORPUSCULAR VOLUME 85.3 fL (81-99); MONOCYTES # (AUTO) 0.5 (0.2-0.8); MONOCYTES % 6.4 % (4.4-11.3); NEUTROPHILS # (AUTO) 4.7 (2.1-6.9); NEUTROPHILS % 62.5 % (38.7-80.0); PLATELET COUNT 183 x10e3/uL (140-360); RED BLOOD COUNT 5.18 x10e6/uL (4.3-5.7); RED CELL DISTRIBUTION WIDTH 14.3 % (11.7-14.4)
[2019-07-04 14:43] LABS: ALANINE AMINOTRANSFERASE 18 IU/L (0-55); ALBUMIN/GLOBULIN RATIO 1.3 (0.8-2.0); ALKALINE PHOSPHATASE 93 IU/L (40-150); BLOOD UREA NITROGEN 16 mg/dL (7-26); BUN/CREATININE RATIO 17 (6-25); CALCIUM 9.1 mg/dL (8.4-10.2); CARBON DIOXIDE 23 mmol/L (22-29); CHLORIDE 106 mmol/L (98-107); CREATININE, SERUM 0.95 mg/dL (0.72-1.25); EST GLOMERULAR FILTRATION RATE > 60 ML/MIN (60-); GLUCOSE 99 mg/dL (74-118); SODIUM 141 mmol/L (136-145)
[~2019-07-07] MED LIST changes: +BUPIVACAINE 0.25%/EPI 30ML SDV INJ ONE; +CEFAZOLIN SOD 1 GM VIAL ONE; +DEXAMETHASONE SOD PHOS INJ 4 MG/ML VIAL ONE; +FAMOTIDINE 20 MG/2 ML VIAL IV ONE; +FENTANYL CITRATE/PF 100MCG/2 ML INJ ONE; +HYDROMORPHONE 2MG/ML 2 MG/ML ML ONE; +IBUPROFEN 800MG/ 250ML 250 ML IV ONE; +LABETALOL HCL 0 ML ONE; +LABETALOL HCL 5 MG/ML 20ML VIAL ONE; +LIDOCAINE HCL 2% LOCAL INJ 5 ML SDV VIAL INJ ONE; +MIDAZOLAM HCL 2 MG/2 ML VIAL ONE; +ONDANSETRON HCL INJ 2MG/ML 2ML 2 MG/ML VIAL ONE; +PROPOFOL IV EMULSION 10 MG/ML 20 ML VIAL ONE; +ROCURONIUM BROMIDE 10 MG/ML 5ML VIAL ONE; +SEVOFLURANE INHAL SOLN 250 ML PEN BTL ONE; +SUGAMMADEX SODIUM 200 MG/2 ML VIAL IV ONE
[2019-07-07 12:45] VITALS: BP 160/89
--- NOTE | 2019-07-07 17:01 | Operative Report ---
DATE OF PROCEDURE: 07/07/2019 SURGEON: German Gerard MD PREOPERATIVE DIAGNOSES: Cholecystitis, cholelithiasis, and umbilical hernia. POSTOPERATIVE DIAGNOSES: Cholecystitis, cholelithiasis, and umbilical hernia. OPERATIONS PERFORMED: Laparoscopic cholecystectomy and repair of umbilical hernia with mesh. ANESTHESIA: General. COMPLICATIONS: None. ESTIMATED BLOOD LOSS: Minimal. DESCRIPTION OF PROCEDURE: With the patient lying in bed in the supine position under good general endotracheal anesthesia, the abdomen was prepped with Betadine solution and draped in the usual manner. Semilunar subumbilical incision was made. It was carried down through the subcutaneous tissue and the hernia sac was then dissected with normal fascia all the way around. A Veress needle was introduced into the hernia sac and pneumoperitoneum was established without any difficulty. An 11 mm trocar was placed through the hernia sac into the intraabdominal cavity and video laparoscopy was then carried out. Under direct vision, three 5 mm trocars were placed in the right subcostal region. Video laparoscopy at this point revealed a gallbladder that contained one large stone in the neck of the gallbladder. The rest of the abdominal exploration was otherwise within normal limits. The peritoneum overlying the neck of the gallbladder was then opened and the cystic duct was identified. The cystic duct was followed to its junction with the common duct. The cystic duct was then circumferentially dissected away from the common duct, doubly clipped and divided. The cystic artery had an anterior and a posterior branch and both of these were individually clipped and divided. The gallbladder was then slowly and carefully taken off the liver bed using the cautery scissors and perfect hemostasis was ascertained. The gallbladder was placed in a bag and removed through the umbilical hernia. After this was done, video laparoscopy was then again carried out. The liver bed was found to be perfectly dry. All the excess fluid was aspirated. The pneumoperitoneum was evacuated and all the trocars were removed under direct vision. The umbilical hernia sac was then resected and the umbilicus was totally from the hernia sac. A Ventralex patch medium-size was then placed through the umbilical defect and deployed without any problems and the mesh was then sutured to the anterior abdominal wall with interrupted sutures of 0 Ethibond anchoring the mesh along with a transverse closure of the fascial defect. After this was done, all layers were carefully infiltrated with 0.25% Marcaine. The umbilicus was then tacked back down to the midline fascia with 3-0 Vicryl. The subcutaneous tissue was approximated with 3-0 Vicryl and the skin. All wounds were closed with subcuticular 5-0 Vicryl. Benzoin, Steri-Strips, and dressings were applied. The sponge, lap, and needle count was correct. The patient tolerated the procedure well and returned to the recovery room in stable condition. MD RON Lovelace/CHRISTAL /[id number]
== END | disposition home or self-care (01) ==
LOC: OR 06:40
PROVIDERS: ATTEND Surgery
DX: K80.10 Calculus of gallbladder with chronic cholecystitis without obstruction (principal); K42.9 Umbilical hernia without obstruction or gangrene; K21.9 Gastro-esophageal reflux disease without esophagitis; N20.0 Calculus of kidney; F32.9 Major depressive disorder, single episode, unspecified; F17.210 Nicotine dependence, cigarettes, uncomplicated; Z01.810 Encounter for preprocedural cardiovascular examination; Z01.812 Encounter for preprocedural laboratory examination
CPT/HCPCS: 36415; 47562; 80053; 85025; 88304; 93005; C1766; C1781; J0690; J1100; J1170; J2001; J2250; J2405; J2704; J3010; J3490

== ENCOUNTER → 2020-08-13 | Outpatient (CLI) | payer OTHER ==
[~2020-08-13] MED LIST changes: -BUPIVACAINE 0.25%/EPI 30ML SDV INJ ONE; -CEFAZOLIN SOD 1 GM VIAL ONE; +COVID-19 VACC, MRNA(MODERNA)/PF 100 MCG/0.5 ML VIAL IM ONE; -DEXAMETHASONE SOD PHOS INJ 4 MG/ML VIAL ONE; -FAMOTIDINE 20 MG/2 ML VIAL IV ONE; -FENTANYL CITRATE/PF 100MCG/2 ML INJ ONE; -HYDROMORPHONE 2MG/ML 2 MG/ML ML ONE; -IBUPROFEN 800MG/ 250ML 250 ML IV ONE; -LABETALOL HCL 0 ML ONE; -LABETALOL HCL 5 MG/ML 20ML VIAL ONE; -LIDOCAINE HCL 2% LOCAL INJ 5 ML SDV VIAL INJ ONE; -MIDAZOLAM HCL 2 MG/2 ML VIAL ONE; -ONDANSETRON HCL INJ 2MG/ML 2ML 2 MG/ML VIAL ONE; -PROPOFOL IV EMULSION 10 MG/ML 20 ML VIAL ONE; -ROCURONIUM BROMIDE 10 MG/ML 5ML VIAL ONE; -SEVOFLURANE INHAL SOLN 250 ML PEN BTL ONE; -SUGAMMADEX SODIUM 200 MG/2 ML VIAL IV ONE
== END ==
LOC: VACCPMC 01:26
DX: Z23 Encounter for immunization (principal); Z20.828 Contact with and (suspected) exposure to other viral communicable diseases

== ENCOUNTER → 2020-09-18 | Outpatient (CLI) | payer BC, OTHER | END | DRG 951 | LOC: VACCPMC 07:45 | DX: Z23 Encounter for immunization (principal); Z20.822 Contact with and (suspected) exposure to COVID-19 | CPT/HCPCS: 0012A; 91301 ==

== ENCOUNTER → 2021-06-16 | Outpatient (CLI) | payer OTHER | LOC: VACCPMC 08:43 | DX: Z23 Encounter for immunization (principal); Z20.822 Contact with and (suspected) exposure to COVID-19 ==

== ENCOUNTER 2025-01-31 07:43 | Outpatient (RCR) | payer BC ==
[~2025-01-31 07:43] MED LIST changes: -COVID-19 VACC, MRNA(MODERNA)/PF 100 MCG/0.5 ML VIAL IM ONE
== END 2025-02-12 ==
LOC: OT 07:43
PROVIDERS: ATTEND Plastic Surgery
DX: S66.317A Strain of extensor muscle, fascia and tendon of left little finger at wrist and hand level, initial encounter (principal); S62.603A Fracture of unspecified phalanx of left middle finger, initial encounter for closed fracture